=== PATIENT | male | born 1985 | race Caucasian/White ===

== ENCOUNTER 2020-04-09 21:31 | Emergency (ER) | payer MEDICAID, SELFPAY ==
[2020-04-09 21:39] VITALS: BP 137/87; PULSE 87; RESP 16; TEMP 36.8; O2SAT 98; BMI 31.0
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
--- NOTE | 2020-04-09 21:50 | XR_ITS ---
WS: [id number] Left ankle, 3 views, 04/09/2020 Clinical Data: injury Comparison: None. Findings: There is an oblique fracture of the distal left fibula. There is widening of the ankle mortise. No me dial malleolar fractures are seen. There is no significant soft tissue swelling. XR/XR ankle LT min 3V* [id number] Impression: Oblique fracture of distal left fibula.
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
[2020-04-10 01:14] VITALS: BP 142/88; PULSE 88; RESP 18; O2SAT 99
[2020-04-10] MEDS: acetaminophen-codeine 300-30mg Tablet 2 TAB PO (01:14)
[2020-04-10 01:45] VITALS: PULSE 82; RESP 18; O2SAT 99
--- NOTE | 2020-04-10 13:37 | DCPLANNER ---
manager primary had message to schedule a follow up appointment for patient with [facility]. manager primary faxed patients paperwork to the [facility] clinic, will call for appointment information.
--- NOTE | 2020-04-16 08:18 | DCPLANNER ---
Georgette chavira contacted case hardener stating that the clinic attempted to contact patient and has not been able to reach patient to schedule a follow up appointment. api product manager called phone number , phone number has been changed or is no longer in service. api product manager unable to reach patient at this time.
== END 2020-04-10 01:47 | disposition home or self-care (01) ==
PROVIDERS: Emergency Provider Nurse Practitioner Family
DX: S00.83XA Contusion of other part of head, initial encounter (principal); S82.62XA Displaced fracture of lateral malleolus of left fibula, initial encounter for closed fracture; S01.112A Laceration without foreign body of left eyelid and periocular area, initial encounter; Y04.2XXA Assault by strike against or bumped into by another person, initial encounter
CPT/HCPCS: 12345; 29505; 70450; 70486; 72125; 73610; 99281; 99283